=== PATIENT | female | born 1985 | race Caucasian/White ===

== ENCOUNTER 2017-08-02 12:30 | Emergency (ER) | payer BC, OTHER ==
[2017-08-02] MEDS ORDERED: KETOROLAC TROMETHAMINE 60 MG/2 ML VIAL IM ONE ×2 (13:10→13:25)
[2017-08-02] MEDS ORDERED: PROMETHAZINE HCL 50 MG/ML AMPUL IM ONE ×2 (13:11→13:24)
--- NOTE | 2017-08-02 13:12 | ERNOTE ---
Syncope ER HPI Stated Complaint: FAINTED/TUNNEL VISION/PASSED OUT Time Seen by Provider: 08/02/17 12:51 Source: patient Exam Limitations: no limitations Immunizations: IMMUNIZATION HX History of Influenza Vaccine No Hx Pneumococcal Vaccination No Allergies/Adverse Reactions: Allergies No Known Allergies Allergy (Verified 08/02/17 12:42) Home Medications: HOME MEDICATIONS ALPRAZolam [Xanax] 0.25 mg PO DAILY PRN 08/02/17 [Last Taken Unknown] Citalopram Hydrobromide [Citalopram HBr] 10 mg PO DAILY 08/02/17 [Last Taken Unknown] Venlafaxine HCl [Effexor Xr] 37.5 mg PO DAILY 08/02/17 [Last Taken Unknown] Zolpidem Tartrate [Ambien] 5 mg PO HS 08/02/17 [Last Taken Unknown] metFORMIN HCL [Metformin HCl] 1,000 mg PO DAILY 08/02/17 [Last Taken Unknown] - History of Present Illness Narrative: Patient was at work, got up from her desk and walked in the other room to get coffee creamer when she started to have tunnel vision, felt hot and collapsed to the ground. She doesn't think she completely lost consciousness, denies hitting her head, vomited once, still feels nauseated and also is having a headache now that feels like the migraines that she gets twice a month. She was started on effexor about ten days ago in addition to the celexa that she has been on for years. The plan is to wean her off the celexa. She is also on day eight of flagyl for BV, didn't have breakfast, denies any acute stressors. The only time she has passed out before was with blood draws Date (Duration): 08/02/17 Time (Timing): 09:30 Prior Episodes: Present: single episode today. Absent: recent history Symptoms prior to episode: Present: vision changes, light headedness, nausea. Absent: rapid heart rate, chest pain Activity at time of episode: Present: standing Character of event: Present: almost passed out Location of Injury: Present: none Current Symptoms: Present: back to normal - except for headache and nausea Prior Treament: Reports: recently seen Review of Systems - Review of Systems Constitutional: Absent: recent illness, fever, chills EYE: Present: see HPI ENT: Absent: nose congestion, nasal drainage Respiratory: Absent: shortness of breath, cough Cardiology: Absent: chest pain Gastrointestinal/Abdominal: Present: nausea, vomiting. Absent: diarrhea, abdominal pain Genitourinary: Present: no symptoms reported. Absent: frequency, dysuria Musculoskeletal: Absent: back pain, neck pain Skin: Absent: rash Neurological: Present: See HPI, headache. Absent: weakness, numbness - Patient's Past Medical History Patient History - Medical: Migraines Patient History - Cardiac/Respiratory: No pertinent hx Patient History - Cancer: No Hx of Cancer Patient History - Surgical Procedures: No surgical history Patient History - Other: None - Social History Living Situations: home Psych History: No pertinent hx Alcohol Use: none Drug Use: none - Immunizations Hx Pneumococcal Vaccination: No History of Influenza Vaccine: No Physical Exam - Physical Exam General Appearance: Present: wd/wn, alert, no apparent distress Head Exam: Present: normal inspection, no evidence of injury Eye Exam: Normal inspection: bilateral, PERRL: bilateral, EOMI: bilateral Ears, Nose, Throat: Present: normal ENT inspection, normal pharynx Neck: Present: normal inspection Respiratory: Present: no respiratory distress, normal breath sounds, no accessory muscle use, lungs clear Cardiovascular/Chest: Present: regular rate, rhythm, no murmur Extremity Exam: Present: no edema Neurological Exam: Present: alert, oriented, normal mood/affect, no motor/ sensory deficits, normal cerebellar test Skin Exam: Present: normal color, warm/dry ED Progress - Results and Orders Patient's Lab Results:: I have reviewed the patient's lab results. - Vital Signs Patient's Vital Signs:: I have reviewed the patient's vital signs. Vital Signs: Vital Signs 08/02/17 12:33 Temperature 36.4 C L Pulse Rate 97 Respiratory 12 Rate Blood Pressure 145/76 O2 Sat by Pulse 97 Oximetry - EKG EKG: NSR, other - no acute changes, no prior EKG read: Interp. by me - Progress/Reassessment Chief Complaint: General Assessment Progress Note-Subjective: 08/02/17 14:17 headache resolved discussed test results Departure Clinical Impression: Vasovagal episode - Departure Disposition: Home self-care Condition: Good Instructions: Vasovagal Syncope, Pediatric Additional Instructions: discuss your medications with your PCP, Referrals: Rain Reed, HOUSE REGISTRY RN [Primary Care Provider] -
[2017-08-02 13:37] LABS: Hematocrit 40.2 % (37.0-47.0); Mean Cell Volume 87.2 fl (78-100); Mean Corpuscular Hemoglobin 30.4 pg (27-31); Mean Corpuscular Hgb Conc 34.8 g/dl (32-36); Mean Platelet Volume 9.3 fl (6.0-9.5); Neutrophil # 7.8 K/mm3 (1.3-6.0); Platelet Count 340 K/mm3 (150-450); Red Blood Count 4.61 M/mm3 (4.2-5.4); Red Cell Distribution Width 13.3 % (11.5-14.0)
[2017-08-02 13:59] LABS: ALT 36 U/L (19-67); AST 27 U/L (0-48); Albumin * 3.8 gm/dl (3.4-5.0); Alkaline Phosphatase * 78 U/L (50-170); Anion Gap 13.2 mmol/L (6.8-13.8); BUN/Creatinine Ratio 15.4 (9.0-21.6); Bilirubin, Total 0.3 mg/dL (0.0-1.1); Blood Urea Nitrogen 12 mg/dL (3-23); Ca. Corrected For Albumin 8.9 mg/dL (8.4-10.2); Calcium * 9.1 mg/dL (7.9-10.9); Carbon Dioxide 24.7 mmol/L (24-32.6); Chloride 103 mmol/L (97-106); Glucose * 90 mg/dL (70-110); Potassium 3.9 mmol/L (3.4-4.6); Sodium 137 mmol/L (132-142); TSH * 2.466 uIU/mL (0.358-3.74); Total Protein 7.9 gm/dL (6.2-8.2); Troponin I Less than 0.017 ng/ml (0.00-0.10)
[2017-08-02 14:00] LABS: Urine Bilirubin Negative (NEGATIVE); Urine Blood Negative /ul (NEGATIVE); Urine Ketone Negative (NEGATIVE); Urine Nitrite Negative (NEGATIVE); Urine Protein Negative (NEGATIVE); Urine Specific Gravity >=1.030 SP.GR. (1.005-1.010); Urine Urobilinogen Normal (NORMAL)
[2017-08-02 14:07] LABS: Urine Appearance Clear; Urine Bacteria None Seen; Urine Color Yellow; Urine RBC None Seen /hpf (0-5); Urine WBC None Seen /hpf (0-5)
[2017-08-02 15:06] VITALS: BP 138/75
== END 2017-08-02 14:30 | disposition home or self-care (01) ==
LOC: ER 12:30
DX: R55 Syncope and collapse (principal)